=== PATIENT | female | born 1960 | race African-American/Black ===

== ENCOUNTER 2020-03-19 06:04 | Inpatient (IN) | payer MEDICAID ==
[~2020-03-19] VITALS: Ht 177.8 cm; Wt 59.0 kg
[2020-03-19] MEDS ORDERED: AZITHROMYCIN 500 MG in DEXT 5% WATER 250 ML IV SCH (06:45)
[2020-03-19] MEDS ORDERED: ASPIRIN 81MG TABLET PO ONE (06:45)
[2020-03-19] MEDS ORDERED: CEFTRIAXONE 1 G PREMIX 50 ML IV ONE (06:45)
[2020-03-19] MEDS ORDERED: FUROSEMIDE 40MG/4ML VIAL IV ONE (06:45)
[2020-03-19 08:05] LABS: BASOPHILS % 0.2 % (0.0-2.0); HEMATOCRIT. 40.1 % (36.0-48.0); HEMOGLOBIN. 12.9 g/dL (12.0-16.0); LYMPHOCYTES % 18.8 % (20.0-50.0); MEAN CORPUSCULAR HEMOGLOBIN 25.8 pg (28.0-32.0); MEAN CORPUSCULAR VOLUME 80.5 fL (81.0-99.0); MEAN PLATELET VOLUME 9.3 fl (7.4-10.4); MONOCYTES % 6.5 % (2.0-8.0); NEUTROPHILS % 74.5 % (40.0-76.0); PLATELET 508 x1000/uL (130-400); RED BLOOD CELL COUNT 4.99 mill/uL (4.2-5.4)
[2020-03-19 08:09] LABS: CHLORIDE 99 mEq/L (98-107)
[2020-03-19 08:10] LABS: PARTIAL THROMBOPLASTIN TIME 29.4 sec (23.4-31.0); PROTHROMBIN TIME 10.6 sec (9.6-11.0)
[2020-03-19 08:13] LABS: ETHANOL BLOOD < 10 mg/dL
[2020-03-19] MEDS ORDERED: SODIUM CHLORIDE 0.9% 250 ML IV ONE (08:49)
[2020-03-19] MEDS ORDERED: ONDANSETRON HCL 4MG/2ML INJ IV ONE (09:00)
[2020-03-19] MEDS ORDERED: MORPHINE SULFATE 2 MG/ML CPJ (NOT FOR IM USE) IV ONE (09:00)
[2020-03-19 09:22] LABS: CLARITY URINE TURBID (CLEAR); COLOR URINE DARK YELLOW (YELLOW); KETONES URINE TRACE (NEGATIVE); LEUKOCYTE ESTERASE URINE 2+ (NEGATIVE); NITRITE URINE POSITIVE (NEGATIVE); OCCULT BLOOD URINE 2+ (NEGATIVE); PROTEIN URINE 3+ (NEGATIVE); SPECIFIC GRAVITY URINE 1.027 (1.005-1.030)
[2020-03-19 09:29] LABS: *AMPHETAMINES SCREEN URINE NEGATIVE (NEGATIVE)
[2020-03-19 09:30] LABS: *BARBITURATES SCREEN URINE NEGATIVE (NEGATIVE); *BENZODIAZEPINES SCREEN URINE NEGATIVE (NEGATIVE); *COCAINE SCREEN URINE PRESUMTIVE POSITIVE (NEGATIVE); METHADONE URINE SCREEN NEGATIVE (NEGATIVE); OPIATES URINE SCREEN NEGATIVE (NEGATIVE); PHENCYCLIDINE URINE SCREEN NEGATIVE (NEGATIVE)
[2020-03-19 09:31] LABS: CANNABINOID URINE SCREEN NEGATIVE (NEGATIVE)
[2020-03-19] MEDS ORDERED: AMLO10TA80 MT (09:34)
[2020-03-19] MEDS ORDERED: ASPI-1079 PO (09:34)
[2020-03-19] MEDS ORDERED: MELO-106 MT (09:34)
[2020-03-19] MEDS ORDERED: LOPE2CAP MT (09:34)
[2020-03-19] MEDS ORDERED: FOLI0.8C MT (09:34)
[2020-03-19] MEDS ORDERED: MECL-159 MT (09:34)
[2020-03-19] MEDS ORDERED: ONDA4TAB11 PO (09:34)
[2020-03-19] MEDS ORDERED: METH2.5T PO (09:34)
[2020-03-19] MEDS ORDERED: CARV3.1242 MT (09:34)
[2020-03-19] MEDS ORDERED: FURO40TA5 PO (09:34)
[2020-03-19] MEDS ORDERED: METOCLOPRAMIDE HCL 10MG/2ML VIAL IV PRN (13:45)
[2020-03-19 13:50] VITALS: BP 114/54
[2020-03-19] MEDS: HYDROCODONE/ACETAMINOPHEN 5/325MG TABLET PO PRN ×2 (15:34→21:54)
[2020-03-19] MEDS: ENOXAPARIN 40MG/0.4ML SYR SUBCUT SCH (15:34)
[2020-03-19 16:00] VITALS: BP 98/64
[2020-03-19 20:00] VITALS: BP 114/75
[2020-03-19] MEDS: ASCORBIC ACID 500 MG TABLET PO SCH (21:11)
[2020-03-19] MEDS: ACETAMINOPHEN 325MG TABLET PO PRN (21:51)
[2020-03-20] VITALS: BP 96/63
[2020-03-20 04:00] VITALS: BP 92/68
[2020-03-20] MEDS: CEFTRIAXONE 1 G PREMIX 50 ML IV SCH (06:12)
[2020-03-20 07:32] LABS: HEPATITIS B SURFACE ANTIGEN NEGATIVE
[2020-03-20 08:00] VITALS: BP 94/64
[2020-03-20 08:02] LABS: HEPATITIS A AB IGM NEGATIVE (NEGATIVE)
[2020-03-20] MEDS: FUROSEMIDE 40MG/4ML VIAL IVP SCH (08:46)
[2020-03-20] MEDS: THIAMINE HCL 100MG TABLET PO SCH ×2 (08:46→17:00)
[2020-03-20] MEDS: AZITHROMYCIN 500 MG TABLET PO SCH (08:46)
[2020-03-20] MEDS: ZINC SULFATE 220 MG ( 50 ) CAPSULE PO SCH (08:46)
[2020-03-20] MEDS: ASCORBIC ACID 500 MG TABLET PO SCH ×2 (08:46→20:08)
[2020-03-20] MEDS: ACETAMINOPHEN 325MG TABLET PO PRN (09:09)
[2020-03-20 12:00] VITALS: BP 90/64
[2020-03-20] MEDS: ENOXAPARIN 40MG/0.4ML SYR SUBCUT SCH (15:08)
[2020-03-20 16:00] VITALS: BP 101/82
[2020-03-20] MEDS: HYDROCODONE/ACETAMINOPHEN 5/325MG TABLET PO PRN (20:12)
[2020-03-20 20:35] VITALS: BP 100/71
[2020-03-21] VITALS (10 sets, daily range): BP systolic 77–111; BP diastolic 44–79
[2020-03-21] MEDS: ACETAMINOPHEN 325MG TABLET PO PRN ×2 (00:54→13:40)
[2020-03-21] MEDS: BENZONATATE 100MG CAPSULE PO PRN (01:10)
[2020-03-21] MEDS: CEFTRIAXONE 1 G PREMIX 50 ML IV SCH (07:00)
[2020-03-21 07:23] LABS: BASOPHILS % 0.6 % (0.0-2.0); EOSINOPHILS % 0.5 % (0.0-5.0); HEMATOCRIT. 32.3 % (36.0-48.0); HEMOGLOBIN. 10.6 g/dL (12.0-16.0); LYMPHOCYTES % 17.5 % (20.0-50.0); MEAN CORPUSCULAR HEMOGLOBIN 26.5 pg (28.0-32.0); MEAN CORPUSCULAR VOLUME 80.7 fL (81.0-99.0); MEAN PLATELET VOLUME 9.1 fl (7.4-10.4); MONOCYTES % 8.2 % (2.0-8.0); NEUTROPHILS % 73.2 % (40.0-76.0); PLATELET 493 x1000/uL (130-400); RED BLOOD CELL COUNT 4.01 mill/uL (4.2-5.4)
[2020-03-21 07:55] LABS: CHLORIDE 101 mEq/L (98-107)
[2020-03-21] MEDS: ASCORBIC ACID 500 MG TABLET PO SCH (09:46)
[2020-03-21] MEDS: FUROSEMIDE 40MG/4ML VIAL IVP SCH ×2 (09:46→23:40)
[2020-03-21] MEDS: ZINC SULFATE 220 MG ( 50 ) CAPSULE PO SCH (09:46)
[2020-03-21] MEDS: THIAMINE HCL 100MG TABLET PO SCH ×2 (09:46→18:02)
[2020-03-21] MEDS: AZITHROMYCIN 500 MG TABLET PO SCH (09:46)
[2020-03-21] MEDS ORDERED: DIGOXIN 500MCG/2ML AMP IV NR (13:30)
[2020-03-21] MEDS ORDERED: IPRATROPIUM/ALBUTEROL 0.5-3(2.5)MG/3ML NEB HHN SCH (14:30)
[2020-03-21] MEDS ORDERED: POTASSIUM CHLORIDE 20MEQ TABLET SR PO NR (14:45)
[2020-03-21] MEDS ORDERED: AMIODARONE HCL 150 MG in DEXT 5% WATER 100 ML IV NR (16:00)
[2020-03-21 17:08] LABS: CHLORIDE 99 mEq/L (98-107)
[2020-03-21] MEDS: AMIODARONE HCL 900 MG in DEXT 5% WATER 482 ML IV PRN (18:04)
[2020-03-21] MEDS: ENOXAPARIN 60MG/0.6ML SYR SUBCUT SCH (18:05)
[2020-03-21] MEDS: GUAIFENESIN 600MG ER TABLET PO SCH (21:00)
[2020-03-22] VITALS (12 sets, daily range): BP systolic 90–129; BP diastolic 49–76
[2020-03-22] MEDS: HYDROCODONE/ACETAMINOPHEN 5/325MG TABLET PO PRN ×2 (00:09→15:55)
[2020-03-22] MEDS ORDERED: MAGNESIUM 1 G PREMIX 100 ML IV NR (01:00)
[2020-03-22] MEDS: ENOXAPARIN 60MG/0.6ML SYR SUBCUT SCH ×2 (06:07→17:33)
[2020-03-22 07:10] LABS: BASOPHILS % 0.4 % (0.0-2.0); EOSINOPHILS % 0.6 % (0.0-5.0); HEMATOCRIT. 31.9 % (36.0-48.0); HEMOGLOBIN. 10.3 g/dL (12.0-16.0); LYMPHOCYTES % 16.8 % (20.0-50.0); MEAN CORPUSCULAR HEMOGLOBIN 26.1 pg (28.0-32.0); MEAN CORPUSCULAR VOLUME 80.9 fL (81.0-99.0); MEAN PLATELET VOLUME 8.9 fl (7.4-10.4); MONOCYTES % 6.3 % (2.0-8.0); NEUTROPHILS % 75.9 % (40.0-76.0); PLATELET 618 x1000/uL (130-400); RED BLOOD CELL COUNT 3.94 mill/uL (4.2-5.4); RED CELL DISTRIBUTION WIDTH 14.9 % (11.6-14.6)
[2020-03-22 07:23] LABS: CHLORIDE 100 mEq/L (98-107)
[2020-03-22] MEDS: THIAMINE HCL 100MG TABLET PO SCH ×2 (08:54→17:34)
[2020-03-22] MEDS: GUAIFENESIN 600MG ER TABLET PO SCH ×2 (08:54→20:13)
[2020-03-22] MEDS: AZITHROMYCIN 500 MG TABLET PO SCH (08:54)
[2020-03-22] MEDS: FUROSEMIDE 40MG/4ML VIAL IVP SCH ×2 (08:54→17:33)
[2020-03-22] MEDS: CEFTRIAXONE 1 G PREMIX 50 ML IV SCH (09:52)
[2020-03-22] MEDS ORDERED: LIDOCAINE HCL 1% 20ML VIAL (Pyxis) INJ ONE (09:56)
[2020-03-22] MEDS: CEFEPIME 1,000 MG in DEXTROSE 5% WATER 50 ML IV SCH (17:34)
[2020-03-22] MEDS ORDERED: VANCOMYCIN 1 G PREMIX 200 ML IV NR (19:00)
[2020-03-22] MEDS: METRONIDAZOLE 500 MG PREMIX 100 ML IV SCH (19:54)
[2020-03-22] MEDS: AMIODARONE HCL 900 MG in DEXT 5% WATER 482 ML IV PRN (20:21)
[2020-03-22] MEDS: IPRATROPIUM/ALBUTEROL 0.5-3(2.5)MG/3ML NEB HHN SCH (20:54)
[2020-03-22] MEDS ORDERED: IOHEXOL-300 100 ML BOTTLE ONE (22:48)
[2020-03-23] VITALS (16 sets, daily range): BP systolic 95–134; BP diastolic 55–74
[2020-03-23] MEDS: METRONIDAZOLE 500 MG PREMIX 100 ML IV SCH ×3 (01:35→17:02)
[2020-03-23] MEDS: IPRATROPIUM/ALBUTEROL 0.5-3(2.5)MG/3ML NEB HHN SCH ×3 (01:40→21:21)
[2020-03-23] MEDS: VANCOMYCIN 750 MG PREMIX 150 ML IV SCH ×2 (02:45→10:26)
[2020-03-23] MEDS: CEFEPIME 1,000 MG in DEXTROSE 5% WATER 50 ML IV SCH ×2 (05:31→17:36)
[2020-03-23] MEDS: ENOXAPARIN 60MG/0.6ML SYR SUBCUT SCH ×2 (06:32→17:01)
[2020-03-23] MEDS: FUROSEMIDE 40MG/4ML VIAL IVP SCH ×2 (06:32→16:24)
[2020-03-23] MEDS: BENZONATATE 100MG CAPSULE PO PRN (08:52)
[2020-03-23] MEDS: THIAMINE HCL 100MG TABLET PO SCH ×2 (08:52→16:24)
[2020-03-23] MEDS: GUAIFENESIN 600MG ER TABLET PO SCH ×2 (08:52→22:16)
[2020-03-23] MEDS: ACETAMINOPHEN 325MG TABLET PO PRN (16:26)
[2020-03-23 16:37] LABS: BASOPHILS % 0.4 % (0.0-2.0); EOSINOPHILS % 0.7 % (0.0-5.0); HEMATOCRIT. 30.5 % (36.0-48.0); HEMOGLOBIN. 9.9 g/dL (12.0-16.0); LYMPHOCYTES % 16.8 % (20.0-50.0); MEAN CORPUSCULAR VOLUME 79.7 fL (81.0-99.0); MEAN PLATELET VOLUME 8.1 fl (7.4-10.4); MONOCYTES % 9.4 % (2.0-8.0); NEUTROPHILS % 72.7 % (40.0-76.0); PLATELET 715 x1000/uL (130-400); RED BLOOD CELL COUNT 3.83 mill/uL (4.2-5.4); RED CELL DISTRIBUTION WIDTH 14.7 % (11.6-14.6)
[2020-03-23 16:59] LABS: CHLORIDE 99 mEq/L (98-107)
[2020-03-23] MEDS ORDERED: POTASSIUM CHLORIDE 20MEQ TABLET SR PO NR (18:45)
[2020-03-23] MEDS: HYDROCODONE/ACETAMINOPHEN 5/325MG TABLET PO PRN (22:16)
[2020-03-24] VITALS (12 sets, daily range): BP systolic 98–139; BP diastolic 52–95
[2020-03-24] MEDS: HYDROCODONE/ACETAMINOPHEN 5/325MG TABLET PO PRN (00:44)
[2020-03-24] MEDS: IPRATROPIUM/ALBUTEROL 0.5-3(2.5)MG/3ML NEB HHN SCH ×6 (00:45→19:51)
[2020-03-24] MEDS: METRONIDAZOLE 500 MG PREMIX 100 ML IV SCH ×3 (01:58→17:02)
[2020-03-24] MEDS: CEFEPIME 1,000 MG in DEXTROSE 5% WATER 50 ML IV SCH ×2 (06:33→17:15)
[2020-03-24] MEDS: ENOXAPARIN 60MG/0.6ML SYR SUBCUT SCH ×2 (06:33→17:15)
[2020-03-24] MEDS: FUROSEMIDE 40MG/4ML VIAL IVP SCH ×2 (07:05→16:17)
[2020-03-24] MEDS: THIAMINE HCL 100MG TABLET PO SCH ×2 (08:03→16:17)
[2020-03-24] MEDS: GUAIFENESIN 600MG ER TABLET PO SCH ×2 (08:03→20:19)
[2020-03-24] MEDS ORDERED: POTASSIUM CHLORIDE 20MEQ TABLET SR PO NR (11:30)
[2020-03-24] MEDS: ACETAMINOPHEN 325MG TABLET PO PRN (14:42)
[2020-03-25] VITALS (9 sets, daily range): BP systolic 99–124; BP diastolic 61–73
[2020-03-25] MEDS: ACETAMINOPHEN 325MG TABLET PO PRN ×4 (00:11→12:32)
[2020-03-25] MEDS: IPRATROPIUM/ALBUTEROL 0.5-3(2.5)MG/3ML NEB HHN SCH ×3 (00:41→08:10)
[2020-03-25] MEDS: METRONIDAZOLE 500 MG PREMIX 100 ML IV SCH ×2 (01:36→09:02)
[2020-03-25] MEDS: CEFEPIME 1,000 MG in DEXTROSE 5% WATER 50 ML IV SCH (06:00)
[2020-03-25] MEDS: ENOXAPARIN 60MG/0.6ML SYR SUBCUT SCH (06:01)
[2020-03-25 06:17] LABS: BASOPHILS % 0.7 % (0.0-2.0); EOSINOPHILS % 1.5 % (0.0-5.0); HEMATOCRIT. 30.2 % (36.0-48.0); HEMOGLOBIN. 9.9 g/dL (12.0-16.0); LYMPHOCYTES % 17.6 % (20.0-50.0); MEAN CORPUSCULAR VOLUME 79.5 fL (81.0-99.0); MEAN PLATELET VOLUME 7.4 fl (7.4-10.4); MONOCYTES % 9.4 % (2.0-8.0); NEUTROPHILS % 70.8 % (40.0-76.0); PLATELET 748 x1000/uL (130-400)
[2020-03-25 07:28] LABS: CHLORIDE 105 mEq/L (98-107)
[2020-03-25] MEDS: GUAIFENESIN 600MG ER TABLET PO SCH (09:01)
[2020-03-25] MEDS: THIAMINE HCL 100MG TABLET PO SCH (09:01)
[2020-03-25] MEDS ORDERED: LEVO750T21 MT (11:53)
[2020-03-25] MEDS ORDERED: LOSA25TA26 MT (11:53)
[2020-03-25] MEDS ORDERED: FURO-151 MT (11:53)
[2020-03-25] MEDS ORDERED: POTA-79 MT (11:53)
[2020-03-25] MEDS ORDERED: CARV3.1242 MT (11:53)
[2020-03-25] MEDS ORDERED: ALBU18HF2 IH (11:53)
[2020-03-25] MEDS ORDERED: FLUT1DIS3 INH (11:53)
[2020-03-25] MEDS ORDERED: IPRATROPIUM/ALBUTEROL 0.5-3(2.5)MG/3ML NEB HHN SCH (14:00)
== END 2020-03-25 15:03 | disposition home health service (06) | DRG 720 ==
LOC: ER 06:04 → 7WST 10:20 → EDBEDREQTM 10:36 → EDBEDREQ 10:36 → ENRESERV 12:43 → 5WST 03-20 21:02 → 3WST 03-21 15:41
PROVIDERS: ADMIT Internal Medicine; ATTEND Internal Medicine
PROC: 05H933Z Insertion of Infusion Device into Right Brachial Vein, Percutaneous Approach (ICD-10-PCS; principal; 2020-03-22)
PROC: B54MZZA Ultrasonography of Right Upper Extremity Veins, Guidance (ICD-10-PCS; 2020-03-22)
DX: A41.9 Sepsis, unspecified organism (principal); J96.00 Acute respiratory failure, unspecified whether with hypoxia or hypercapnia; E43 Unspecified severe protein-calorie malnutrition; I50.43 Acute on chronic combined systolic (congestive) and diastolic (congestive) heart failure; J91.8 Pleural effusion in other conditions classified elsewhere; I11.0 Hypertensive heart disease with heart failure; J18.1 Lobar pneumonia, unspecified organism; I27.20 Pulmonary hypertension, unspecified; J68.0 Bronchitis and pneumonitis due to chemicals, gases, fumes and vapors; N39.0 Urinary tract infection, site not specified; F14.90 Cocaine use, unspecified, uncomplicated; E87.1 Hypo-osmolality and hyponatremia; B34.9 Viral infection, unspecified; I25.10 Atherosclerotic heart disease of native coronary artery without angina pectoris; I48.91 Unspecified atrial fibrillation; B96.89 Other specified bacterial agents as the cause of diseases classified elsewhere; R74.0 Nonspecific elevation of levels of transaminase and lactic acid dehydrogenase [LDH]; B96.20 Unspecified Escherichia coli [E. coli] as the cause of diseases classified elsewhere; D64.9 Anemia, unspecified; Z20.828 Contact with and (suspected) exposure to other viral communicable diseases; K57.30 Diverticulosis of large intestine without perforation or abscess without bleeding; K76.0 Fatty (change of) liver, not elsewhere classified; I25.2 Old myocardial infarction; Z68.1 Body mass index [BMI] 19.9 or less, adult; Z79.899 Other long term (current) drug therapy; Z79.82 Long term (current) use of aspirin; Z71.51 Drug abuse counseling and surveillance of drug abuser
CPT/HCPCS: 36415; 71045; 71250; 74177; 76700; 76937; 80048; 80053; 80202; 80305; 80320; 81003; 83605; 83735; 83880; 84484; 85025; 85379; 86705; 86709; 86803; 87077; 87186; 87340; 87635; 87804; 93005; 93306; 93970; 97162; 99291; C1725; J0282; J0456; J0692; J0696; J1160; J1650; J1940; J2270; J2405; J2765; J3370; J3475; J3490; J7050; J7060; Q9967; G0480